=== PATIENT | male | born 1940 | race Caucasian/White ===

== ENCOUNTER 2017-02-13 07:58 | Outpatient (CLI) | payer OTHER ==
[~2017-02-13] VITALS: Ht 188 cm; Wt 103.1 kg
--- NOTE | ~2017-02-13 | CATH ---
Cardiac Diagnostic + PCI Report Demographics Patient Name FRANCISCO JAVIER Joshi Gender Male Date of 1940 Age 76 year(s) Patient Number [id number] Date of Study 02/13/2017 Visit Number [id number] Room Number G6[address] [place] [id number] Ht 185.42 cm Wt 103.1 kg Referring Edith Maciel MD Primary Physician Physician Performing Edith Maciel MD Secondary Physician Physician Diagnostic Edith Maciel MD Assisting Physician Physician Interventional Edith Maciel MD Physician Aviation Neuropsychologist Physician Findings and Conclusions Diagnostic Findings and Conclusion 2 vessel CAD Patent stent LCX mid LAD lesion Diagnostic Recommendations PCI mid LAD Anteroapical and apical Ischemia Interventional Findings and Conclusion 0.014 Prowater 2.75 x 15 Emerge 3.0 x 16 Rebel to 3.35 Interventional Recommendations DAPT x 1 month Procedure Description The patient was brought to the diagnostic cardiac catheterization-EP laboratory in the fasting, non-sedated state. Informed consent was obtained in the written and verbal form after the risks and benefits were explained. The patient had no further questions and agreed to proceed. The planned puncture-incision site(s) were shaved and prepped with ChloraPrep and draped in the usual sterile manner. Conscious sedation, supplemental oxygen, and pain control medications were delivered by a registered nurse under physician guidance. Surface ECG rhythm, blood pressure measurement, and pulse oximetry were monitored throughout the procedure. Arterial access. The access site was infiltrated with lidocaine. The vessel was entered with the Seldinger technique. A sheath was advanced into the vessel and used for catheter placement. Selective left coronary angiography. A catheter was advanced into the left coronary vessel ostium under Fluoroscopic guidance. Contrast was injected by hand. Images were obtained in multiple projections. Selective right coronary angiography. A catheter was advanced into the right coronary vessel ostium under fluoroscopic guidance. Contrast was injected by hand. Images were obtained in multiple projections. Left heart catheterization. A catheter was advanced across the aortic valve to the left ventricle under fluoroscopic guidance. Resting hemodynamics were obtained. Stent Placement: A guiding catheter was used to intubate the vessel. A 0.14 wire was used to cross the lesion. A Bare Metal Stent was placed. Post placement angiograms were performed. Arterial artery hemostasis was achieved. The patient was transferred to a regular nursing floor via cart accompanied by a nurse. The patient left the laboratory in stable condition. Diagnostic Cath Status: Elective Interventional Cath Status: Urgent Procedure Procedure Type Diagnostic procedure:Angiography:, Coronary Angios /[facility] PCI procedure:Bare Metal Coronary Stent:, LAD The procedure was explained in detail to the patient. Risks, complications and alternative treatments were reviewed. Written consent was obtained. Medications Reviewed with Patient prior to Procedure. Angiographic Findings Dominance: Right Cardiac Arteries and Lesion Findings LMCA: Normal (0% Stenosis).large wnl LAD: Abnormal.medium, mid 75%, distal small Diag 1 large ok Lesion on Prox LAD: Mid subsection.75% stenosis 16 mm length reduced to 0%. Pre procedure CELI III flow was noted. The guidewire cross was successful.A good run off was present.The lesion was diagnosed as a high risk lesion.Culprit lesion. Devices used - Scodix Wire .014 x 180. Number of passes: 1. - Emerge Balloon 2.75 x 15. 1 inflation(s) to a max pressure of: 8 prince. - 3.0 x 16 Rebel Stent. 2 inflation(s) to a max pressure of: 15 prince. LCx: Abnormal.large ok OM1 small OM 2 large patent stentThere is a previous stent on Mid CX showing wide patency. RCA: Abnormal.Large dominant, diffuse plaque PL small ok PDA medium ok Coronary Tree Procedure Data Procedure Date Date: 02/13/2017Start: 10:45 AMEnd: 12:04 PM Entry Locations - Retrograde Percutaneous access was performed through the Right Femoral artery (Primary location). A 6 Fr sheath was inserted. Hemostasis was successfully obtained using Perclose ProGlide (Cantu). Closure Comments: deployed by malachi. Procedure Medications Order and Administration + + + + + !Time !Medication !Dosage !Route ! + + + + + !02/13/2017 10:45 !Versed !0.5 mg !I.V. ! !AM ! ! ! ! + + + + + !02/13/2017 10:46 !Fentanyl !25 mcg !I.V. ! !AM ! ! ! ! + + + + + !02/13/2017 10:48 !Fentanyl !25 mcg !I.V. ! !AM ! ! ! ! + + + + + !02/13/2017 10:49 !Versed !0.5 mg !I.V. ! !AM ! ! ! ! + + + + + !02/13/2017 11:03 !Angiomax (Bivalirudin) !80 mg !I.V. bolus ! !AM !(ACC_5) ! ! ! + + + + + !02/13/2017 11:03 !Angiomax (Bivalirudin) !1.75 mg/kg/hr!I.V. drip ! !AM !(ACC_5) ! ! ! + + + + + !02/13/2017 11:05 !Nipride !75 mcg !I.C. ! !AM ! ! ! ! + + + + + !02/13/2017 11:08 !Nipride !75 mcg !I.C. ! !AM ! ! ! ! + + + + + !02/13/2017 11:15 !Nipride !100 mcg !I.C. ! !AM ! ! ! ! + + + + + !02/13/2017 11:17 !Brilinta (Ticagrelor) !180 mg !P.O. ! !AM !(ACC_20) ! ! ! + + + + + !02/13/2017 11:24 !Angiomax (Bivalirudin) ! !I.V. drip ! !AM !(ACC_5) ! ! ! + + + + + Devices Used - A6 Fr. BS JL 4 Diag. Catheterwas used for:Left coronary angiography. - A6 Fr. BS JR 4 Diag. Catheterwas used for:Right coronary angiography. - A6 Fr. BS Angled Pigtail Diag. Catheterwas used for:LV Pressures. - A6 Fr. XB 3.5 Guide Catheterwas used for:LAD Intervention. Contrast Material - Isovue [id number] ml Fluoroscopy Time: Diagnostic: 8:00 minutes. Total: 8:00 minutes. Fluoroscopy Dose: Diagnostic: 2037 mGy. Total: 2037 mGy. Estimated Blood Loss: 5 ml. Additional [facility] PCI Information PCI Indication:PCI for high risk Non-STEMI or unstable angina. Medical History Allergies - No known allergies. Risk Factors The patient risk factors include:prior PCI on 06/25/2014;physical activity, treated hypercholesterolemia, treated hypertension, family history of premature CAD, last creatinine: 1 mg/dl, creatinine clearance: 91.64 ml/min, dyslipidemia, former tobacco use, prior heart failure and prior [place] . Admission Data Admission Date: 02/13/2017 Admission Time: 07:58 AM Admit Source: Other Admission Medications + +------+------+ + + + + !Medication !Dosage!Times !Last !Last !Administered !Comments ! ! ! !Per !Delivery !Delivery ! ! ! ! ! !Day !Date !Time ! ! ! + +------+------+ + + + + !Aspirin ! ! ! ! ! ! ! !(any) ! ! ! ! ! ! ! + +------+------+ + + + + !Beta ! ! ! ! ! ! ! !Mark ! ! ! ! ! ! ! !(any) ! ! ! ! ! ! ! + +------+------+ + + + + !Statin ! ! ! ! ! ! ! !(any) ! ! ! ! ! ! ! + +------+------+ + + + + Clinical Evaluation Leading to Procedure - The patient's CAD presentation was assessed as: Unstable angina. - The patient's anginal syndrome during the past two weeks was assessed as: Class III according to the [place] [employer] Classification System (CCS). Anti-anginal medications were prescribed during the past two weeks. The medications are: Beta Blockers and Other. - The reason for the patient's clinical laboratory service teacher visit is pre-operative evaluation before non-cardiac surgery. [facility] Ventriculography Findings anteroapical and apical ischemia Hemodynamics Condition: Rest O2 Consumption: Estimated: 244.01Heart Rate: 51 bpm Pressures (mmHg) +-----+ + !Site !Pressure ! +-----+ + !AO !152/61 (94) ! +-----+ + !LV !151/6 ,18 ! +-----+ + !LV !120/8 ,11 ! +-----+ + !AO !160/53 (102) ! +-----+ + Valve Gradients and Areas + +---------+---------+---------+ +---------+ + !Valve !Peak !Mean !Area !Index !Flow !Source ! + +---------+---------+---------+ +---------+ + !Aortic !0 !0 ! ! ! ! ! + +---------+---------+---------+ +---------+ + !Aortic !0 !0 ! ! ! ! ! + +---------+---------+---------+ +---------+ + Shunts Oxygen Values O2 Capacity 190.4 O2 Consumption 244.01 Discharge Data Discharge Date: 02/14/2017 Hospital Status: Outpatient Signatures dtt: Raheem Sharma (cardio) dtd: 02/13/17 1045 Physician Self Edit
[~2017-02-13 07:58] MED LIST: ASPIRIN EC81 MG PO; BRILINTA90 MG PO; COREG 3.1253.125 MG PO; COREG6.25 MG PO; DESYREL50 MG PO; DULCOLAX10 MG R; FLUOXETINE HCL20 MG PO; NAPROSYN500 MG PO; NITROSTAT 0.40.4 MG SL; NITROSTAT0.4 MG SL; ROBAXIN750 MG PO; VASOTEC2.5 MG PO; XANAX0.25 MG PO; ZOCOR40 MG PO
[2017-02-13 11:38] LABS: MAGNESIUM 2.2 mg/dL (1.8-2.6); POTASSIUM 3.7 mMol/L (3.7-5.1)
--- NOTE | 2017-02-13 16:40 | NUR ---
Significant Event: A/O x3, coooperative with cares. VSS, SBPs 140-160s, HRS 40-50s, on room air. No c/o pain. Heart cath today, R) groin, perclose. Site soft non-tender with gauze et transparent dressing C/D/I. Void per urinal without difficulty. Up in chair. Follow up: ambulate; d/c tomorrow
[2017-02-14 03:46] LABS: BASOPHIL % 0.5 %; EOSINOPHIL # 0.2 K/uL (0.0-0.5); EOSINOPHIL % 3.2 %; HEMATOCRIT 35.9 % (37.0-53.0); HEMOGLOBIN 12.6 g/dL (11.0-16.0); IMMATURE GRANULOCYTE % 0.5 %; LYMPHOCYTE # 1.4 K/uL (0.8-4.0); LYMPHOCYTE % 21.9 %; MCH 32.8 pg (27.0-34.0); MCHC 35.1 gm/dL (32.0-36.5); MCV 93.5 fl (83.0-98.0); MONOCYTE # 0.6 K/uL (0.0-1.0); MONOCYTE % 10.3 %; NEUTROPHIL % 63.6 %; NRBC % 0 /100WBC (0-0.00); PLATELET COUNT 207 K/uL (150-450); RBC 3.84 M/uL (3.50-5.50); RDW-CV 13.3 % (11.9-14.6); WBC 6.2 K/uL (4.0-11.0)
[2017-02-14 04:08] LABS: ALBUMIN 3.2 gm/dL (3.5-5.0); CALCIUM 8.2 mg/dL (8.5-10.5); CREATININE 0.9 mg/dL (0.6-1.3); TOTAL BILIRUBIN 0.7 mg/dL (0.0-1.5); TOTAL PROTEIN 6.1 g/dL (6.0-8.4)
--- NOTE | 2017-02-14 05:00 | NUR ---
Significant Event: Patient is alert and oriented. VSS. HR 40-50's. SBP 120-130's. On RA. Up ad kerrie. Groin site soft non-tender. Bruising extending from dressing, marked. Patient has been calm and cooperative with cares. Patient drove himself here, need to address before discharge. Follow up: Should go home today.
[2017-02-14] MEDS ORDERED: VASOTEC2.5 MG PO (08:34)
[2017-02-14] MEDS ORDERED: BRILINTA90 MG PO (08:35)
--- NOTE | 2017-02-14 10:27 | NUR ---
DISM.NOTE: A/O X 3. REVIEW OF HOME MEDS WITH NEW MEDS AND HANDOUTS GIVEN. SIDE EFFECTS DISCUSSED. PRESCRIPTIONS GIVEN. DIET/ ACTIVITY FOLLOW UP APPT. HOME INSTRUCTIONS POST RT. GROIN HEART CATH. PT. VOICED UNDERSTANDING.
== END 2017-02-14 10:36 | disposition disaster alternative care site (69) ==
LOC: GPCU 07:58 → GCAT 07:58 → GPOC 08:00 → GPCU 12:13 → GPOC 17:00 → GCAT 02-14 10:36
PROVIDERS: Internal Medicine Interventional Cardiology
DX: R94.31 Abnormal electrocardiogram [ECG] [EKG] (principal); I44.0 Atrioventricular block, first degree; I44.7 Left bundle-branch block, unspecified; R00.1 Bradycardia, unspecified
CPT/HCPCS: C1725; C1760; C1769; C1876; C1887; J0461; J0583; J1644; J2001; J2250; J3010; J7030; J7040; J7060